=== PATIENT | female | born 1995 | race Caucasian/White ===

== ENCOUNTER 2025-01-25 15:04 | Outpatient (RCR) | payer OTHER, SELFPAY | END 2025-05-12 15:41 | disposition home or self-care (01) | LOC: HO.PT 15:04 | PROVIDERS: PCP Physician Assistant Surgical; Visit Provider Physician Assistant Surgical | DX: S46.912D Strain of unspecified muscle, fascia and tendon at shoulder and upper arm level, left arm, subsequent encounter (principal) | CPT/HCPCS: 97110; 97140; 97161 ==